=== PATIENT | male | born 1985 | race Asian ===

== ENCOUNTER 2017-08-22 17:27 | Outpatient (CLI) | payer OTHER | END 2017-08-22 17:31 | disposition short-term general hospital (02) | LOC: AMB 17:27 | DX: M54.89 Other dorsalgia (principal); Y04.2XXA Assault by strike against or bumped into by another person, initial encounter; Y92.89 Other specified places as the place of occurrence of the external cause | CPT/HCPCS: A0425; A0427 ==

== ENCOUNTER 2017-08-22 17:35 | Emergency (ER) | payer OTHER ==
[~2017-08-22] VITALS: Ht 170.2 cm; Wt 88.5 kg
[2017-08-22 17:30] VITALS: BP 130/77; TEMP 98.1
== END 2017-08-22 18:53 | disposition home or self-care (01) ==
LOC: ED 17:35 → EDSEX 17:35 → ED 18:53
DX: R51 Headache (principal); M54.9 Dorsalgia, unspecified; Y00.XXXA Assault by blunt object, initial encounter; Y92.89 Other specified places as the place of occurrence of the external cause

== ENCOUNTER 2018-07-13 13:38 | Emergency (ER) | payer OTHER ==
[~2018-07-13] VITALS: Ht 170.2 cm; Wt 93.0 kg
[2018-07-13 14:12] LABS: PLATELET COUNT 337 K/uL (142-355)
[2018-07-13 14:13] LABS: POTASSIUM 3.4 mmol/L (3.6-5.2)
[2018-07-15 09:51] VITALS: BP 129/79; TEMP 97.7
== END 2018-07-15 09:51 | disposition other institution (70) ==
LOC: ED 13:38
PROVIDERS: Emergency Medicine
DX: F20.89 Other schizophrenia (principal); Z04.6 Encounter for general psychiatric examination, requested by authority
CPT/HCPCS: 36415; 80053; 80307; 80320; 80329; 81000; 85027; 93005; 99285

== ENCOUNTER 2019-07-15 23:24 | Outpatient (CLI) | payer OTHER | END 2019-07-15 23:28 | disposition short-term general hospital (02) | LOC: AMB 23:24 | DX: R41.82 Altered mental status, unspecified (principal); S20.319A Abrasion of unspecified front wall of thorax, initial encounter; R29.5 Transient paralysis; V03.00XA Pedestrian on foot injured in collision with car, pick-up truck or van in nontraffic accident, initial encounter; Y92.413 State road as the place of occurrence of the external cause | CPT/HCPCS: A0425; A0427 ==

== ENCOUNTER 2019-10-11 14:31 | Emergency (ER) | payer OTHER ==
[~2019-10-11] VITALS: Ht 170.2 cm; Wt 93.0 kg
[2019-10-11] MEDS ORDERED: RISP1TAB PO (15:08)
[2019-10-11] MEDS ORDERED: GABA300C2 PO (15:09)
[2019-10-11 15:39] LABS: PLATELET COUNT 454 K/uL (142-355)
[2019-10-11 15:44] LABS: POTASSIUM 3.8 mmol/L (3.6-5.2)
[2019-10-11 15:54] LABS: PARTIAL THROMBOPLASTIN TIME 25.8 SECONDS (24.5-33.6)
[2019-10-11 20:15] VITALS: BP 110/61; TEMP 98.4
== END 2019-10-11 20:36 | disposition home or self-care (01) ==
LOC: ED 14:31
PROVIDERS: Hospitalist
DX: L89.322 Pressure ulcer of left buttock, stage 2 (principal); L89.522 Pressure ulcer of left ankle, stage 2; L89.512 Pressure ulcer of right ankle, stage 2; N39.0 Urinary tract infection, site not specified; G82.21 Paraplegia, complete
CPT/HCPCS: 80053; 81000; 85027; 85610; 85730; 87040; 87077; 87086; 87088; 87186; 96365; 96366; 99284; J1956; J3370; J7040

== ENCOUNTER 2019-12-06 14:15 | Outpatient (CLI) | payer OTHER ==
[~2019-12-06 14:15] MED LIST: GABA300C2 PO; RISP1TAB PO
[2019-12-06 15:27] LABS: PLATELET COUNT 507 K/uL (142-355)
[2019-12-06 15:42] LABS: POTASSIUM 4.1 mmol/L (3.6-5.2)
== END 2019-12-06 20:48 | disposition home or self-care (01) ==
LOC: LABW 14:15
PROVIDERS: Podiatrist
DX: Z01.810 Encounter for preprocedural cardiovascular examination (principal); Z01.811 Encounter for preprocedural respiratory examination; Z01.812 Encounter for preprocedural laboratory examination
CPT/HCPCS: 36415; 80053; 85027; 93005

== ENCOUNTER 2020-07-24 20:30 | Emergency (ER) | payer OTHER ==
[~2020-07-24] VITALS: Ht 170.2 cm; Wt 93.0 kg
[2020-07-24 22:20] VITALS: BP 131/91; TEMP 98.2
== END 2020-07-24 22:20 | disposition home or self-care (01) ==
LOC: ED 20:30
DX: M25.561 Pain in right knee (principal); G82.20 Paraplegia, unspecified; X50.1XXA Overexertion from prolonged static or awkward postures, initial encounter; Y92.89 Other specified places as the place of occurrence of the external cause
CPT/HCPCS: 96372; 99283; J1885

== ENCOUNTER 2020-08-20 19:33 | Emergency (ER) | payer OTHER ==
[~2020-08-20] VITALS: Ht 167.6 cm; Wt 79.4 kg
[2020-08-20 19:33] VITALS: TEMP 98
[2020-08-20 21:30] VITALS: BP 137/72
== END 2020-08-20 21:35 | disposition home or self-care (01) ==
LOC: ED 19:43
DX: S80.812A Abrasion, left lower leg, initial encounter (principal); S80.811A Abrasion, right lower leg, initial encounter; S70.312A Abrasion, left thigh, initial encounter; S70.311A Abrasion, right thigh, initial encounter; S20.412A Abrasion of left back wall of thorax, initial encounter; S20.411A Abrasion of right back wall of thorax, initial encounter; V02.99XA Pedestrian with other conveyance injured in collision with two- or three-wheeled motor vehicle, unspecified whether traffic or nontraffic accident, initial encounter; Y92.89 Other specified places as the place of occurrence of the external cause
CPT/HCPCS: 99283

== ENCOUNTER 2022-02-12 12:18 | Outpatient (CLI) | payer OTHER | END 2022-02-12 19:13 | disposition home or self-care (01) | LOC: LAB 12:18 | PROVIDERS: ATTEND Nurse Practitioner | DX: R31.0 Gross hematuria (principal); Z97.8 Presence of other specified devices | CPT/HCPCS: 81000; 87077; 87086; 87088; 87186 ==